=== PATIENT | female | born 2005 | race Caucasian/White ===

== ENCOUNTER 2024-06-02 15:29 | Inpatient (IN) ==
--- NOTE | 2024-06-02 16:14 | Emergency Department Note ---
Impression & Plan Pneumonia ED Provider Note NAME: KENNY JANE AGE: 18 SEX: F : 2005 ARRIVES VIA: Walk-In INFORMANT: Patient, ED PROVIDER(S): Sue Briceño MD CHIEF COMPLAINT: Pneumonia, hypokalemia HPI: This is a 18-year-old female presenting for low potassium and pneumonia. Patient was recently urgent care for 1+ week of cough, congestion. She notes that she was been sick for 3+ weeks. She was at urgent care last week for she is given steroids and antibiotics, amoxicillin. She is not feeling better and represented if she had another chest x-ray which revealed pneumonia. She is also found to hypokalemic and sent here. ROS: See above HPI for pertinent positives & negatives. A total of 10 systems reviewed and were otherwise negative. PAST MEDICAL HISTORY: See Below PAST SURGICAL HISTORY: See Below FAMILY HISTORY: See Below SOCIAL HISTORY: See Below HOME MEDICATIONS: See Below ALLERGIES: See Below VITALS: See Below PHYSICAL EXAMINATION: General: resting comfortably in no acute distress Head: Normocephalic and atraumatic Eyes: Normal inspection, extraocular muscles intact Ear, nose, throat: Normal external exam Neck: Normal range of motion Respiratory: lungs clear to auscultation bilaterally Cardiovascular: Regular rate/rhythm, no murmur GI: soft, nontender, no guarding or rebound Extremities: nontender, moves all extremities Neuro: The patient awake and alert, appropriately conversive, no focal deficits, symmetric faces Skin: Warm, dry, and intact MEDICAL DECISION MAKING: This is a 18-year-old female present for low potassium/pneumonia. Patient is hypotensive and febrile at triage. She is not tachycardic. Upon recheck of her blood pressure it is now 110/80s. She is not febrile currently at temperature of 98 degrees. -Will order fluids, antibiotics, blood cultures -Due to the national IV fluid shortage, we will use only 1 L as patient is 62 kg and not currently hypotensive -Patient is already failed outpatient therapy, was on amoxicillin for 1 week without improvement and actually worsening -Otherwise patient mention she had fainted earlier due to her POTS. -She is hypokalemic here, will require repletion will give oral potassium -Upper respiratory panel negative -Due to the pneumonia, outpatient failure, hypokalemia and fainting and will admit for pneumonia treatment Differential diagnosis: Pneumonia, respiratory infection ER treatment provided: See below Diagnostics interpreted by me: ECG: ECG independently interpreted by me with normal sinus rhythm, rate of 84, normal axis, normal IA, normal QRS, normal QTc, no ST segment elevations consistent with STEMI criteria Cardiac Monitoring: An order was placed for continuous cardiac monitoring. The monitor shows a rate of 78 with sinus rhythm. Laboratory studies: As stated above and show below. Imaging studies: See below. Past Med/Surg History Problem List (Updated 06/02/24 @ 22:06 by Sue Briceño MD) Pneumonia (Acute) Family history of factor V Leiden mutation Acute otitis media Hypokalemia Postural orthostatic tachycardia syndrome Hypotension Pneumonia Syncope Vasovagal episode Tonsillitis, chronic Medical History Postural orthostatic tachycardia syndrome History of COVID-19 Anxiety Surgical History S/P tonsillectomy and adenoidectomy Hx of wisdom tooth extraction Family History Father Unknown family medical history Mother Unknown family medical history Social History Smoking Status: Never smoker Second Hand Exposure: No; Do You Dip or Chew Tobacco: No; Hx Alcohol Use: No Hx Substance Use: No Preferred Language: Greek Communication Ability: Effective 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 Beliefs That Will Affect Care: None Current Living Situation: Other Current Living Situation Comment: Off-campus apartment @ [facility] Other Information That Helps Us Care for You: No Feels Safe at Home: Yes Safety Concerns: Feels Safe At This Time Assistive Devices: Glasses Allergies Allergies Allergy/AdvReac Type Severity Reaction Status Date / Time cefdinir Allergy Rash Verified 06/02/24 12:18 clindamycin Allergy Rash Verified 06/02/24 12:18 Home Meds Home Medications Medication Instructions Recorded Confirmed norethindrone 1 mg-ethinyl 1 tab PO HS 06/17/22 06/02/24 estradiol 20 mcg (21)-iron 75 mg (7) tablet (09/12 (28)) Saccharomyces boulardii [Probiotic 1 tab PO DAILY 09/10/23 06/02/24 (S.boularparkeri)] escitalopram oxalate 10 mg tablet 10 mg PO HS 09/10/23 06/02/24 fludrocortisone 0.1 mg tablet 0.1 mg PO HS 06/02/24 06/02/24 Previous Rx's Medication Instructions Recorded albuterol sulfate 90 mcg/actuation 2 puff inhalation .Q4-6H PRN 05/26/24 aerosol inhaler shortness of breath or wheezing #8.5 grams Results & Data (ED) Vital Signs Vital Signs - 24 hr 06/02/24 15:37 06/02/24 15:47 06/02/24 17:08 Temperature 38.2 C H Temperature Source Oral Pulse Rate 78 90 Pulse Rate [Apical] 97 H Respiratory Rate 18 27 H Respiratory Effort / Characteristics Non-Labored Respiratory Depth Normal Blood Pressure 86/56 L Blood Pressure [Right Arm] 123/77 Blood Pressure Mean 66 Blood Pressure Mean [Right Arm] 92 Pulse Oximetry 95 95 Oxygen Delivery Method Room Air Room Air Sepsis Recent Fever Within 48 Hours No Sepsis New/Unexplained Change in Mental Status N/A Sepsis Action Taken by Nursing Physician Notified 06/02/24 17:27 Temperature 37.1 C Temperature Source Oral Pulse Rate Pulse Rate [Apical] Respiratory Rate Respiratory Effort / Characteristics Respiratory Depth Blood Pressure Blood Pressure [Right Arm] Blood Pressure Mean Blood Pressure Mean [Right Arm] Pulse Oximetry Oxygen Delivery Method Sepsis Recent Fever Within 48 Hours Sepsis New/Unexplained Change in Mental Status Sepsis Action Taken by Nursing Laboratory Data 06/02/24 15:49 Lab Results 06/02/24 06/02/24 Range/Units 15:49 15:53 Sodium 137 (136-145) mmol/L Potassium 2.7 L (3.5-5.1) mmol/L Chloride 98 (98-107) mmol/L Carbon Dioxide 29 (21-32) mmol/L Anion Gap 10 (3-11) BUN 8 (6-23) mg/dl Creatinine 0.71 (0.6-1.2) mg/dl Est Cr Clr Drug Dosing Not Reportable eGFR 124.75 BUN/Creatinine Ratio 11.3 (10-20) Glucose 109 H (70-99(Fasting)) mg/dl Calcium 8.7 (8.6-10.3) mg/dl Magnesium 2.0 (1.7-2.4) mg/dl Total Bilirubin 0.6 (0.2-1.0) mg/dl Direct Bilirubin 0.1 (0-0.2) mg/dl AST 10 L (13-39) U/L ALT 11 (7-52) U/L Alkaline Phosphatase 55 (34-104) U/L Total Protein 7.1 (6.0-8.3) gm/dl Albumin 3.8 (3.4-5.0) gm/dl Globulin 3.3 (2.5-4.0) gm/dl Albumin/Globulin Ratio 1.2 (0.9-2) Lipase 32 (11-82) U/L HCG, Qual Negative (Negative) Adenovirus (PCR) Not Detected (NotDetected) B. pertussis DNA (PCR) Not Detected (NotDetected) B.parapertussis DNA PCR Not Detected (NotDetected) C. pneumoniae DNA (PCR) Not Detected (NotDetected) Coronavirus OC43 (PCR) Not Detected (NotDetected) Coronavirus HKU1 (PCR) Not Detected (NotDetected) Coronavirus 229E (PCR) Not Detected (NotDetected) SARS-CoV-2 (PCR) Not Detected (NotDetected) Coronavirus NL63 (PCR) Not Detected (NotDetected) Human Metapneumovir PCR Not Detected (NotDetected) Influenza Type A (PCR) Not Detected (NotDetected) Influenza Type B (PCR) Not Detected (NotDetected) M. pneumoniae (PCR) Not Detected (NotDetected) Parainfluenza 1 (PCR) Not Detected (NotDetected) Parainfluenza 2 (PCR) Not Detected (NotDetected) Parainfluenza 3 (PCR) Not Detected (NotDetected) Parainfluenza 4 (PCR) Not Detected (NotDetected) RSV (PCR) Not Detected (NotDetected) Entero/Rhino (PCR) Not Detected (NotDetected) Administered Medications Escitalopram Oxalate (Escitalopram Oxalate 10 Mg Tab) 10 mg PO HS ANITRA Stop: 07/02/24 21:30 Last Admin: 06/02/24 21:49 Dose: Not Given Documented By: ACH Fludrocortisone Acetate (Fludrocortisone Acetate 0.1 Mg Tab) 0.1 mg PO HS ANITRA Stop: 07/02/24 21:30 Last Admin: 06/02/24 21:50 Dose: Not Given Documented By: WILD Heparin Sodium (Porcine) (Heparin Sod 5,000 Unit/0.5 Ml Vial) 5,000 units SQ Q12 ANITRA Stop: 07/02/24 20:59 Last Admin: 06/02/24 21:01 Dose: 5,000 units Documented By: DL Discontinued Medications Ceftriaxone Sodium (Rocephin) 2,000 mg in 50 mls @ 100 mls/hr IV NOW STA Stop: 06/02/24 17:10 Last Infusion: 06/02/24 17:36 Dose: Infused Documented By: Admin: 06/02/24 17:11 Dose: 100 mls/hr Documented By: MMF Doxycycline Hyclate 100 mg/ (Dextrose) 100 mls @ 50 mls/hr IV NOW STA Stop: 06/02/24 18:40 Last Infusion: 06/02/24 20:23 Dose: Infused Documented By: Admin: 06/02/24 18:49 Dose: 50 mls/hr Documented By: BRIAN Ioversol (Optiray 320 125ml) 112 ml IV ONCE ONE Stop: 06/02/24 19:23 Last Admin: 06/02/24 19:22 Dose: 112 ml Documented By: CAROLINA Potassium Chloride (Potassium Chloride Crtab 20 Meq Tabcr) 40 meq PO NOW STA Stop: 06/02/24 16:36 Last Admin: 06/02/24 17:11 Dose: 40 meq Documented By: BRIAN Potassium Chloride (Potassium Chloride Crtab 20 Meq Tabcr) 40 meq PO NOW STA Stop: 06/02/24 18:31 Last Admin: 06/02/24 18:52 Dose: 40 meq Documented By: MMF Imaging Data Radiologist's Impression: Chest CTA 06/02/24 18:29 Exam(s): CTA CHEST IV Amt: 112 ml optiray 320 EXAM: CT Angiography Chest With Intravenous Contrast CLINICAL HISTORY: Reason for exam: PE. TECHNIQUE: Axial computed tomographic angiography images of the chest with intravenous contrast. CTDI is 22 mGy and DLP is 320.24 mGy-cm. Automated exposure control was utilized for the study. A dose lowering technique was utilized adhering to the principles of ALARA. MIP reconstructed images were created and reviewed. COMPARISON: No relevant prior studies available. FINDINGS: Pulmonary arteries: Unremarkable. No evidence of pulmonary embolism. Aorta: No acute findings. No aortic aneurysm or dissection. Lungs: Patchy and extensive consolidative opacities throughout the right lower lobe consistent with pneumonia. Left lung appears clear. Pleural space: Trace bilateral pleural effusions. No pneumothorax. Heart: Unremarkable. No cardiomegaly. No significant pericardial effusion. Bones/joints: No acute fracture. No dislocation. Soft tissues: Unremarkable. Lymph nodes: Unremarkable. No enlarged lymph nodes. IMPRESSION: 1. No evidence of pulmonary embolism. 2. Patchy and extensive consolidative opacities throughout the right lower lobe consistent with pneumonia. Electronically signed by: Alexandr Gann M.D. 06/02/24 20:04 PM Discharge Plan Visit Data Chief Complaint: Abnormal Labs/Diagnostic Testing Stated Complaint: ABN LABS ED Provider: Sue Briceño Discharge Problem: Pneumonia Patient Disposition: Admitted As Inpatient Discharge Instructions Interventions: ED Discharge Assessment Last Done: 06/02/24 21:11
[2024-06-02 16:37] LABS: Albumin Level 3.8 gm/dl (3.4-5.0); Anion Gap 10 (3-11); Bilirubin Direct 0.1 mg/dl (0-0.2); Bilirubin,Total 0.6 mg/dl (0.2-1.0); Calcium 8.7 mg/dl (8.6-10.3); Carbon Dioxide 29 mmol/L (21-32); Chloride 98 mmol/L (98-107); Potassium 2.7 mmol/L (3.5-5.1); Sodium 137 mmol/L (136-145)
[2024-06-02 16:43] LABS: Alanine Aminotransferase 11 U/L (7-52); Albumin Globulin Ratio 1.2 (0.9-2); Alkaline Phosphatase 55 U/L (34-104); Aspartate Aminotransferase 10 U/L (13-39); BUN Creatinine Ratio 11.3 (10-20); Blood Urea Nitrogen 8 mg/dl (6-23); Globulin 3.3 gm/dl (2.5-4.0); Glucose 109 mg/dl (70-99(Fasting)); Lipase 32 U/L (11-82); Total Protein 7.1 gm/dl (6.0-8.3)
[2024-06-02 16:59] LABS: Adenovirus PCR Not Detected (NotDetected); Bordetella parapertussis PCR Not Detected (NotDetected); Bordetella pertussis PCR Not Detected (NotDetected); Chlamydia pneumoniae PCR Not Detected (NotDetected); Coronavirus 229E PCR Not Detected (NotDetected); Coronavirus CoV-2 (COVID19)PCR Not Detected (NotDetected); Coronavirus HKU1 PCR Not Detected (NotDetected); Coronavirus NL63 PCR Not Detected (NotDetected); Coronavirus OC43PCR Not Detected (NotDetected); Human Metapneumovirus PCR Not Detected (NotDetected); Influenza A PCR Not Detected (NotDetected); Influenza B PCR Not Detected (NotDetected); Mycoplasma pneumoniae PCR Not Detected (NotDetected); Parainfluenza Virus 1 PCR Not Detected (NotDetected); Parainfluenza Virus 2 PCR Not Detected (NotDetected); Parainfluenza Virus 3 PCR Not Detected (NotDetected); Parainfluenza Virus 4 PCR Not Detected (NotDetected); Respiratory Syncytial VirusPCR Not Detected (NotDetected); Rhinovirus/Enterovirus PCR Not Detected (NotDetected)
[2024-06-02] MEDS: cefTRIAXone SODIUM 2,000 MG/50 ML BAG IV STA (17:11)
[2024-06-02] MEDS: POTASSIUM CHLORIDE CRTAB 20 MEQ TABCR PO STA ×2 (17:11→18:52)
--- NOTE | 2024-06-02 17:45 | History & Physical Report ---
Date of Service June 02, 2024 Assessment & Plan (1) Pneumonia: Plan: Worsening pneumonia x 3 week despite recent course of amoxicillin + prednisone Failure of outpatient antibiotics Non-hypoxic on arrival; however patient is tachycardic, febrile, and hypotensive in the ED CXR revealed moderate RLL airspace opacity with consolidation consistent with pneumonia Blood cultures drawn x 2 Rocephin 2000 mg IV q24h Doxycycline 100 mg IV q12h Guaifenesin 600 mg p.o. q12h DuoNeb 3 mL 6QR as needed for wheezing Continuous pulse oximetry Supplemental oxygen as needed to maintain SpO2 >94% A.m. CBC, BMP, mag (2) Family history of factor V Leiden mutation: Plan: Patient also endorses pleuritic CP and hemoptysis x 3 days No personal history of DVT/PE, but Family hx of DVT/PE/Factor V Leiden Patient is currently on control She reports S sent her in today to double check for PE D-dimer elevated at 550 Chest CTA ordered, pending (3) Hypotension: Plan: Patient's blood pressure fell to 86/56 in the ED Patient attributes this to POTS, and she rebounded quickly without IV fluid resuscitation In the setting of national IVF shortage, will defer overnight IVF maintenance at this time IVF bolus as needed for recurrence of hypotension Encourage PO fluid intake (4) Syncope: Plan: Patient reports that she passed out on 06/02 while having her blood work drawn History of vasovagal syncope, which she attributes to POTS Close blood pressure monitoring Continuous telemetry monitoring (5) Hypokalemia: Plan: K 2.7 on arrival Potassium chloride 80mEq ordered Mag ordered, pending Recheck AM BMP (6) Postural orthostatic tachycardia syndrome: Plan: Continue fludrocortisone (7) Acute otitis media: Plan: Bulging left tympanic membrane on clinical exam Rocephin (as above) Plan Disposition: Admit to [facility] telemetry pending CTA results Full code Regular diet VTE PPx: Chest CTA ordered, pending Will defer to Dr. Key's overnight (Heparin IV w/ bolus if positive for PE; due to risk factors, would also recommend Lovenox 40mg SQ q24h if negative for PE) History of Present Illness Chief Complaint: RLL pneumonia Primary Care Provider: [facility] Donis is a pleasant 18-year-old female with PMH of tonsillitis and vasovagal syncope. She presented on 06/02 for worsening pneumonia despite outpatient treatment. Patient symptoms began 3 weeks ago. Week 1: Initially she had a cold with body-aches and productive cough. This worsened and she eventually developed SOB and had concerns for mucous plugging in the lungs. She also had an episode of vomiting, but is unsure if it was secondary to taking acetaminophen on an empty stomach. She went to urgent care on Sunday 05/27 and was prescribed amoxicillin x 10 days and steroids. Despite this, her symptoms have worsened. She went to [facility] today and was told that she has an ear infection, and she should be sent over for imaging to chest for a potential blood clot. Patient reports that she does have a family history of blood clots, and that she needs to be tested for factor V Leiden. Both grandparents on both sides of had blood clots in the past. She has no personal history of DVT or PE. Patient reports that she passed out today when she was having blood work drawn. For her symptoms at home, she has been taking extra strength Tylenol and DayQuil as needed. She has been having low-grade fevers at home around 100 F intermittently. Patient takes all of her medications at night, and reports that she has been taking them regularly. She is currently on day 7 of a 10-day course of amoxicillin. Around 3 days ago, she began developing hemoptysis (streaks of blood in her cough). She also reports pleuritic chest pain when having these coughing fits. She denies chance of and reports her last menstrual period was 2 weeks ago. She denies any recent rashes or tick bites to her knowledge. She was given an inhaler for bronchitis this past week, but does not have a history of asthma to her knowledge. She denies smoking, chewing toba account manager b2b, vaping, alcohol use, or recreational drug use. She denies past medical history of pulmonary issues. 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 She reports that she only has a mild allergy to cefdinir (developed a rash on her forehead); no history of anaphylaxis, hives, or throat closure. She denies penicillin allergy. She does have a history of ear infections. Patient was hypotensive at 85/56 in the ED, but rebounded quickly with IV fluids. Patient is tachypneic at 27 rpm and mildly tachycardic around 100 bpm at time of admission; vitals otherwise stable. ED course: Doxycycline 100 mg IV Rocephin 2000 mg IV Potassium chloride 40mEq p.o. ROS: Patient endorses low-grade fever, chills, night-sweats, rib pain (from coughing), productive cough (white/green), coughing fits, hemoptysis (streaks of blood in cough), pleuritic CP, green bile vomiting x 1 episode (attributes to not eating much and taking Tylenol on an empty stomach), Patient denies dizziness/lightheadedness, MAX, chest pain, SOB at rest and with exertion, nausea, diarrhea, changes in urinary/bowel habits, burning with urination, blood in the urine/stool, melena, or numbness/tingling in the arms or legs. Please see Dr. Yarbrough' attestation for any changes to treatment plan overnight. Allergies Allergy/AdvReac Type Severity Reaction Status Date / Time cefdinir Allergy Rash Verified 06/02/24 12:18 clindamycin Allergy Rash Verified 06/02/24 12:18 Home Medications Medication Instructions Recorded Confirmed Type norethindrone 1 mg-ethinyl 1 tab PO HS 06/17/22 06/02/24 History estradiol 20 mcg (21)-iron 75 mg (7) tablet (09/12 (28)) Saccharomyces boulardii [Probiotic 1 tab PO DAILY 09/10/23 06/02/24 History (S.boulardii)] escitalopram oxalate 10 mg tablet 10 mg PO HS 09/10/23 06/02/24 History albuterol sulfate 90 mcg/actuation 2 puff inhalation .Q4-6H PRN 05/26/24 06/02/24 Rx aerosol inhaler shortness of breath or wheezing #8.5 grams fludrocortisone 0.1 mg tablet 0.1 mg PO HS 06/02/24 06/02/24 History Past Med/Surg History Problem List (Updated 06/02/24 @ 19:03 by Bertram Veliz PA-C) Family history of factor V Leiden mutation Acute otitis media Hypokalemia Postural orthostatic tachycardia syndrome Hypotension Pneumonia Syncope Vasovagal episode Tonsillitis, chronic Medical History Postural orthostatic tachycardia syndrome History of COVID-19 Anxiety Surgical History S/P tonsillectomy and adenoidectomy Hx of wisdom tooth extraction Family History Father Unknown family medical history Mother Unknown family medical history Social History Smoking Status: Never smoker Second Hand Exposure: No; Do You Dip or Chew Tobacco: No; Hx Alcohol Use: No Hx Substance Use: No Preferred Language: Armenian Communication Ability: Effective 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 Beliefs That Will Affect Care: None Current Living Situation: Parent Feels Safe at Home: Yes Assistive Devices: Glasses Review of Systems Review of Systems: See HPI above Physical Exam Physical Exam: General: no acute distress; pleasant affect; non-toxic appearing; well- nourished; cooperative; SpO2 95% on RA HEENT: normocephalic, atraumatic; no scleral icterus; PERRLA; vision and hearing intact; left tympanic membrane is erythematous and bulging; right tympanic membrane is pearly pollock without signs of infection; posterior pharynx is raw, erythematous without exudates Neck: supple; trachea midline Skin: warm, dry without signs of tenting; no cyanosis; no rashes, bruising, lesions, or erythema noted CV: chest wall NTP; RRR; S1/S2 normal; no murmurs/rubs/gallops; pulses intact and symmetric at radial, DP, and PT Lungs: No acute respiratory distress; intermittent hacking/coughing fits; symmetrical chest wall expansion; bibasilar crackles auscultated in the lower lung melvin bilaterally; mild wheezing ABD: Soft, NTP; BS present; no rebound/guarding; no distention MSK: no tics or fasciculations; no edema noted in the LEs b/l, nonerythematous Neuro: A&Ox3; normal mood and affect; fluent speech; no focal deficits; sensation grossly intact in the LEs b/l Results & Data Results & Data Vital Signs (Past 12 Hours) Vital Signs Temp Pulse Pulse Resp BP BP Pulse Ox 06/02/24 17:27 37.1 C 06/02/24 17:08 97 H 27 H 123/77 95 06/02/24 15:37 38.2 C H 78 18 86/56 L 95 O2 Del Method 06/02/24 17:27 06/02/24 17:08 Room Air 06/02/24 15:37 Room Air Laboratory Results Abnormal lab results 06/02/24 Range/Units 15:49 Potassium 2.7 L (3.5-5.1) mmol/L Glucose 109 H (70-99(Fasting)) mg/dl AST 10 L (13-39) U/L Diagnostic Findings XR chest 2V PA/lateral CLINICAL HISTORY: J22 - Unspecified acute lower respiratory infection COMPARISON STUDY: Chest radiograph July 03, 2022. FINDINGS: Lung volumes are normal. There is moderate right lower lobe airspace opacity with consolidation. There is no pneumothorax or pleural effusion. Cardiac size is normal. Mediastinal contours are normal. There is no evidence for pulmonary edema. IMPRESSION: Moderate right lower lobe airspace opacity with consolidation consistent with pneumonia. Post treatment radiographs to ensure resolution are recommended. ACT 112: Negative or not required by law. Electronically signed by: Charbel Foote M.D. 06/02/2024 3:08 PM ECG Additional Comments: ECG revealed normal sinus rhythm at 84 bpm; QTc 439 Code Status & VTE Plan Code Status Full code VTE Prophylaxis Plan VTE Prophylaxis will be ordered: Yes Supervising Physician Co-Signing Physician Notes I have personally seen, evaluated and examined the patient. I have also personally discussed the management of the patient with the resident physician/KVNG and I agree with the exam findings documented in the history and physical examination and the documented assessment and plan unless otherwise stated below. Brief Exam: General 18-year-old female is alert and oriented x 3 at the time my exam. She interacts appropriately. She is accompanied by her boyfriend whom she grants permission to be in the room during my interview and examination. 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 HEENT: Normocephalic atraumatic. Heart: Regular rate and rhythm. Lungs: Coarse Bilaterally with rhonchi. Abdomen: Soft and nontender. Extremities: Intact with no edema. Neurologically: Alert and oriented x 3. Assessment/plan: As discussed above. CTA has now been resulted and is negative for pulmonary embolism but does have bilateral patchy pulmonary infiltrates. Continue antibiotic therapy. Sputum cultures. Chemical DVT prophylaxis with Lovenox. Please refer to orders for further planning. PG Care Time/CCT Total # of Minutes Spent Total Time Spent with Patient: Total time spent is greater than 50% in coordination of care (as documented) at patient's floor/unit and/or counseling patient: [place] [address] INT INP/OBS CARE 3/75MIN Patient Type Established Medical Decision Making High Complexity Diagnoses Pneumonia J18.9 Family history of factor V Leiden mutation Z83.2 Hypotension I95.9 Syncope, unspecified syncope type R55 Syncope type: unspecified Hypokalemia E87.6 Postural orthostatic tachycardia syndrome G90.A Acute otitis media H66.90 (4) Syncope Syncope type: unspecified Qualified Code(s): R55 - Syncope and collapse
[2024-06-02 18:21] LABS: Pregnancy Test, Serum Negative (Negative)
[2024-06-02] MEDS: DOXYCYCLINE HYCLATE 100 MG in DEXTROSE 5% MINI-B 100 ML IV STA (18:49)
[2024-06-02] MEDS: OPTIRAY 320 125ml IV ONE (19:22)
--- NOTE | 2024-06-02 20:05 | CT Scan Report ---
Exam(s): CTA CHEST IV Amt: 112 ml optiray 320 EXAM: CT Angiography Chest With Intravenous Contrast CLINICAL HISTORY: Reason for exam: PE. TECHNIQUE: Axial computed tomographic angiography images of the chest with intravenous contrast. CTDI is 22 mGy and DLP is 320.24 mGy-cm. Automated exposure control was utilized for the study. A dose lowering technique was utilized adhering to the principles of ALARA. MIP reconstructed images were created and reviewed. COMPARISON: No relevant prior studies available. FINDINGS: Pulmonary arteries: Unremarkable. No evidence of pulmonary embolism. Aorta: No acute findings. No aortic aneurysm or dissection. Lungs: Patchy and extensive consolidative opacities throughout the right lower lobe consistent with pneumonia. Left lung appears clear. Pleural space: Trace bilateral pleural effusions. No pneumothorax. Heart: Unremarkable. No cardiomegaly. No significant pericardial effusion. Bones/joints: No acute fracture. No dislocation. Soft tissues: Unremarkable. Lymph nodes: Unremarkable. No enlarged lymph nodes. IMPRESSION: 1. No evidence of pulmonary embolism. 2. Patchy and extensive consolidative opacities throughout the right lower lobe consistent with pneumonia. Electronically signed by: Alexandr Gann M.D. 06/02/24 20:04 PM
[2024-06-02] MEDS: HEPARIN SOD 5,000 UNIT/0.5 ML VIAL SQ SCH (21:01)
[2024-06-02] MEDS ORDERED: ACETAMINOPHEN 325 MG TAB PO PRN (21:31)
[2024-06-02] MEDS ORDERED: ALBUT/IPRATROP 3MG/0.5MG NEB 3 ML VIAL NEB PRN (21:31)
[2024-06-02] MEDS: ESCITALOPRAM OXALATE 10 MG TAB PO SCH (21:49)
[2024-06-02] MEDS: FLUDROCORTISONE ACETATE 0.1 MG TAB PO SCH (21:50)
[2024-06-02] MEDS: guaiFENesin 600 MG TABCR PO SCH (22:38)
[2024-06-02 23:05] LABS: Appearance Urine Clear (Clear); Bacteria Urine Automated None Seen (None Seen); Bilirubin Urine Negative (Negative); Blood Urine Negative (Negative); Cast Urine Automated 0-2 /lpf (0-2); Color Urine Yellow; Glucose Urine UA Negative (Negative); Ketones Urine Negative (Negative); Leukocyte Esterase Urine 1+ (Negative); Nitrite Urine Negative (Negative); Protein Urine Negative (Negative); Specific Gravity Urine 1.042 (1.000-1.030); Urobilinogen Urine Negative (Negative); WBC Urine Automated 0-5 /hpf (0-5); pH Urine 8.5 (4.5-7.5)
[2024-06-03 07:25] LABS: Basophils # (auto) 0.03 K/uL (0.00-0.20); Basophils % (auto) 0.4 %; Eosinophils # (auto) 0.27 K/uL (0.00-0.50); Hemoglobin 12.3 g/dl (12.0-16.0); Immature Granulocytes # (auto) 0.03 K/uL (0.01-0.20); Immature Granulocytes % (auto) 0.4 %; Lymphocytes # (auto) 1.96 K/uL (1.20-3.40); Lymphocytes % (auto) 29.3 %; Mean Corpuscular Hemoglobin 29.7 pg (25.0-34.0); Mean Corpuscular Hgb Conc 34.2 g/dL (32.0-36.0); Mean Platelet Volume 9.6 fL (9.4-12.4); Monocytes # (auto) 0.48 K/uL (0.11-0.59); Monocytes % (auto) 7.2 %; Neutrophils # (auto) 3.91 K/uL (1.40-6.50); Neutrophils % (auto) 58.7 %; Platelet Count 261 K/uL (130-400); RDW Standard Deviation 38.6 fL (36.4-46.3); Red Blood Count 4.14 M/uL (4.20-5.40); White Blood Count 6.68 K/ul (4.8-10.8)
[2024-06-03 07:29] LABS: BUN Creatinine Ratio 14.8 (10-20); Calcium 8.4 mg/dl (8.6-10.3); Creatinine Clr Calc Pharmacy 132.4 ml/min; Magnesium 2.1 mg/dl (1.7-2.4); Potassium 3.7 mmol/L (3.5-5.1)
[2024-06-03] MEDS: DOXYCYCLINE HYCLATE 100 MG in DEXTROSE 5% MINI-B 100 ML IV SCH (08:02)
--- NOTE | 2024-06-03 08:04 | Medical Student Progress Note ---
Date of Service June 03, 2024 Assessment & Plan (1) Pneumonia: Plan: -Resolving, but still some concern -Dyspnea improving, sputum clearing up -Amoxicillin course not complete -Fevers/chills persisting, warm and sweaty on exam -Continue amoxicillin PO -Discontinue doxycycline -Continue Rocephin Worsening pneumonia x 3 week despite recent course of amoxicillin + prednisone Failure of outpatient antibiotics Non-hypoxic on arrival; however patient is tachycardic, febrile, and hypotensive in the ED CXR revealed moderate RLL airspace opacity with consolidation consistent with pneumonia Blood cultures drawn x 2 Rocephin 2000 mg IV q24h Doxycycline 100 mg IV q12h Guaifenesin 600 mg p.o. q12h DuoNeb 3 mL 6QR as needed for wheezing Continuous pulse oximetry Supplemental oxygen as needed to maintain SpO2 >94% A.m. CBC, BMP, mag (2) Family history of factor V Leiden mutation: Plan: -Current chest pain associated w/rib soreness from coughing -Hemoptysis = blood streaks, resolved 3 days ago. Likely due to irritation from coughing -Chest CT negative for PE -Monitor for change in chest pain Patient also endorses pleuritic CP and hemoptysis x 3 days No personal history of DVT/PE, but Family hx of DVT/PE/Factor V Leiden Patient is currently on control She reports [facility] sent her in today to double check for PE D-dimer elevated at 550 Chest CTA ordered, pending (3) Hypotension: Plan: Patient's blood pressure fell to 86/56 in the ED Patient attributes this to POTS, and she rebounded quickly without IV fluid resuscitation In the setting of national IVF shortage, will defer overnight IVF maintenance at this time IVF bolus as needed for recurrence of hypotension Encourage PO fluid intake (4) Syncope: Plan: Patient reports that she passed out on 06/02 while having her blood work drawn History of vasovagal syncope, which she attributes to POTS Close blood pressure monitoring Continuous telemetry monitoring Syncope type: unspecified Qualified Code(s): R55 - Syncope and collapse (5) Hypokalemia: Plan: K 2.7 on arrival Potassium chloride 80mEq ordered Mag ordered, pending Recheck AM BMP (6) Postural orthostatic tachycardia syndrome: Plan: Continue fludrocortisone (7) Acute otitis media: Plan: Bulging left tympanic membrane on clinical exam Rocephin (as above) Plan Disposition: Admit to [facility] telemetry pending CTA results Full code Regular diet VTE PPx: Chest CTA ordered, pending Will defer to Dr. Key's overnight (Heparin IV w/ bolus if positive for PE; due to risk factors, would also recommend Lovenox 40mg SQ q24h if negative for PE) Admission and Anticipated Discharge Date Admission Date: June 02, 2024 Subjective No acute events overnight. Donis is feeling better. Shortness of breath is improving, only noted soreness in ribs from coughing. Mucus from cough is now clear, and bloody streaks resolved 3 days ago. She experienced fevers/chills on and off yesterday but has not felt any this morning. She also denies ear pain or discharge, chest pain, or abdominal pain. Review of Systems Review of Systems: Per HPI Physical Exam Physical Exam: General: Well-appearing, well-nourished female, in no acute distress. Vitals unremarkable HEENT: Normocephalic, atraumatic. Conjunctivae clear, sclera nonicteric, pupils equally round and reactive to light, extraocular movements intact. Neck supple, no lymphadenopathy, no thyromegaly. Respiratory: Productive-sounding coughs. Symmetric chest wall expansion, nonlabored breathing, no accessory muscle use. Crackles and wheezing on expiration throughout R lung, pronounced in RLL. Cardiovascular: Regular rate and rhythm, no murmurs rubs or gallops. No leg edema GI: Normoactive bowel sounds. Abdomen nondistended, nontender. No hepatosplenomegaly. Skin: Warm and moist Results & Data Vital Signs (Past 12 Hours) Vital Signs Temp Pulse Pulse Pulse Resp BP Pulse Ox 06/03/24 07:32 06/03/24 00:34 95 06/02/24 21:43 105 H 06/02/24 21:34 87 06/02/24 21:27 06/02/24 21:27 37 C 89 18 122/82 96 06/02/24 21:00 88 17 114/75 98 O2 Del Method 06/03/24 07:32 Room Air 06/03/24 00:34 Room Air 06/02/24 21:43 06/02/24 21:34 06/02/24 21:27 Room Air 06/02/24 21:27 Room Air 06/02/24 21:00 Room Air Resident Supervision Co-Signing Physician Notes Resident Attestation I was personally present during medical student and patient encounter and independently interviewed and examined the patient and verified the reed history and physical, reviewed labs and image studies, discussed the case with Hector LUCERO), and agree with the above mentioned findings and care plan. Resident Activity Tracking Resident Involvement: Resident Care Provided Care Provided: Adult Hospital Medicine
[2024-06-03 11:41] VITALS: BP 116/76; RESP 18; TEMP 97.9; O2SAT 93
--- NOTE | 2024-06-03 14:18 | Electrocardiogram Report ---
Test Reason : Blood Pressure : */* mmHG Vent. Rate : 84 BPM Atrial Rate : 84 BPM P-R Int : 138 ms QRS Dur : 88 ms QT Int : 372 ms P-R-T Axes : 48 83 22 degrees QTcB Int : 439 ms Normal sinus rhythm Normal ECG When compared with ECG of 10-Sep-2023 14:27, (unconfirmed) Nonspecific T wave abnormality now evident in Anterior leads Confirmed by Uriah Ochoa ([id number]) on 06/03/2024 2:18:05 PM Referred By: REFERRED SELF Confirmed By: Uriah Ochoa
--- NOTE | 2024-06-03 15:02 | Electrocardiogram Report ---
Test Reason : Blood Pressure : */* mmHG Vent. Rate : 80 BPM Atrial Rate : 80 BPM P-R Int : 136 ms QRS Dur : 90 ms QT Int : 386 ms P-R-T Axes : 62 78 30 degrees QTcB Int : 445 ms Normal sinus rhythm Normal ECG When compared with ECG of 02-Jun-2024 15:49, (unconfirmed) No significant change was found Confirmed by Uriah Ochoa ([id number]) on 06/03/2024 3:02:24 PM Referred By: REFERRED SELF Confirmed By: Uriah Ochoa
[2024-06-03] MEDS: cefTRIAXone SODIUM 2,000 MG/50 ML BAG IV SCH (16:04)
[2024-06-03 16:09] VITALS: PULSE 88
--- NOTE | 2024-06-03 16:09 | Med Student Discharge Summary ---
Date of Service June 03, 2024 Admission HPI Per Admitting Provider Donis is a pleasant 18-year-old female with PMH of tonsillitis and vasovagal syncope. She presented on 06/02 for worsening pneumonia despite outpatient treatment. Patient symptoms began 3 weeks ago. Week 1: Initially she had a cold with body-aches and productive cough. This worsened and she eventually developed SOB and had concerns for mucous plugging in the lungs. She also had an episode of vomiting, but is unsure if it was secondary to taking acetaminophen on an empty stomach. She went to urgent care on Sunday 05/27 and was prescribed amoxicillin x 10 days and steroids. Despite this, her symptoms have worsened. She went to [facility] today and was told that she has an ear infection, and she should be sent over for imaging to chest for a potential blood clot. Patient reports that she does have a family history of blood clots, and that she needs to be tested for factor V Leiden. Both grandparents on both sides of had blood clots in the past. She has no personal history of DVT or PE. Patient reports that she passed out today when she was having blood work drawn. For her symptoms at home, she has been taking extra strength Tylenol and DayQuil as needed. She has been having low-grade fevers at home around 100 F intermittently. Patient takes all of her medications at night, and reports that she has been taking them regularly. She is currently on day 7 of a 10-day course of amoxicillin. Around 3 days ago, she began developing hemoptysis (streaks of blood in her cough). She also reports pleuritic chest pain when having these coughing fits. She denies chance of and reports her last menstrual period was 2 weeks ago. She denies any recent rashes or tick bites to her knowledge. She was given an inhaler for bronchitis this past week, but does not have a history of asthma to her knowledge. She denies smoking, chewing tobacco, vaping, alcohol use, or recreational drug use. She denies past medical history of pulmonary issues. 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 She reports that she only has a mild allergy to cefdinir (developed a rash on her forehead); no history of anaphylaxis, hives, or throat closure. She denies penicillin allergy. She does have a history of ear infections. Patient was hypotensive at 85/56 in the ED, but rebounded quickly with IV fluids. Patient is tachypneic at 27 rpm and mildly tachycardic around 100 bpm at time of admission; vitals otherwise stable. ED course: Doxycycline 100 mg IV Rocephin 2000 mg IV Potassium chloride 40mEq p.o. ROS: Patient endorses low-grade fever, chills, night-sweats, rib pain (from coughing), productive cough (white/green), coughing fits, hemoptysis (streaks of blood in cough), pleuritic CP, green bile vomiting x 1 episode (attributes to not eating much and taking Tylenol on an empty stomach), Patient denies dizziness/lightheadedness, MAX, chest pain, SOB at rest and with exertion, nausea, diarrhea, changes in urinary/bowel habits, burning with urination, blood in the urine/stool, melena, or numbness/tingling in the arms or legs. Please see Dr. Yarbrough' attestation for any changes to treatment plan overnight. Admission Exam (Per Admitting) Constitutional General: no acute distress; pleasant affect; non-toxic appearing; well- nourished; cooperative; SpO2 95% on RA HEENT: normocephalic, atraumatic; no scleral icterus; PERRLA; vision and hearing intact; left tympanic membrane is erythematous and bulging; right tympanic membrane is pearly pollock without signs of infection; posterior pharynx is raw, erythematous without exudates Neck: supple; trachea midline Skin: warm, dry without signs of tenting; no cyanosis; no rashes, bruising, lesions, or erythema noted CV: chest wall NTP; RRR; S1/S2 normal; no murmurs/rubs/gallops; pulses intact and symmetric at radial, DP, and PT Lungs: No acute respiratory distress; intermittent hacking/coughing fits; symmetrical chest wall expansion; bibasilar crackles auscultated in the lower lung melvin bilaterally; mild wheezing ABD: Soft, NTP; BS present; no rebound/guarding; no distention MSK: no tics or fasciculations; no edema noted in the LEs b/l, nonerythematous Neuro: A&Ox3; normal mood and affect; fluent speech; no focal deficits; sensation grossly intact in the LEs b/l Discharge Exam General: Well-appearing, well-nourished female, in no acute distress. Vitals unremarkable HEENT: Normocephalic, atraumatic. Conjunctivae clear, sclera nonicteric, PERRL, EOMI. Neck supple, no lymphadenopathy, no thyromegaly. Respiratory: Productive-sounding coughs. Symmetric chest wall expansion, nonlabored breathing, no accessory muscle use. Crackles and wheezing on expiration throughout R lung, pronounced in RLL. Cardiovascular: RRR, no murmurs rubs or gallops. No leg edema GI: Normoactive bowel sounds. Abdomen nondistended, nontender. No hepatosplenomegaly. Skin: Warm to touch and moist Discharge Data Consultations 06/02/24 18:04 ED Decision to Admit Stat Hospital Course (1) Pneumonia: -Improving, but not resolved -Dyspnea improving, sputum clearing up -Amoxicillin course not complete -Fevers/chills persisting, warm and sweaty on exam -Chest CT: Patchy and extensive consolidative opacities throughout the right lower lobe consistent with pneumonia -Continue amoxicillin PO -Discontinue doxycycline -Received 2 days IV Rocephin -Cefpodoxime 200 mg PO BID 8 days to complete 10 days of therapy (2) Family history of factor V Leiden mutation: -Current PE ruled out -Current chest pain associated w/rib soreness from coughing -Hemoptysis = blood streaks, resolved 3 days ago. Likely due to irritation from coughing -Chest CT negative for PE -F/u outpatient management w/Dr. Roque (3) Hypotension: -Hx of POTS -F/u outpatient management w/Dr. Roque (4) Syncope: -Hx of POTS -F/u for outpatient management w/Dr. Roque (5) Hypokalemia: -Resolved -K 3.7 today -Depletion likely in setting of infection -Encouraged proper diet for continued repletion (6) Postural orthostatic tachycardia syndrome: Continue fludrocortisone (7) Acute otitis media: -Received 2 days IV Rocephin -Cefpodoxime 200 mg PO BID 8 days to complete 10 days of therapy -F/u for outpatient management w/Dr. Roque Discharge Plan Discharge Items Patient Disposition: Home - Self-Care Reason For Visit: PNUEMONIA Discharge Diagnosis: Pneumonia Activity: Per Instructions section Non-emergency contact: Primary Care Provider Call non-emergency contact if: you have any medication questions, your symptoms worsen and your temperature is above 101 Follow-up/Referrals: [facility] [Primary Care Provider] - Sia Roque MD [Resident] - Diet: Regular Addtl Attending Provider Instructions: You were admitted to the hospital due to pneumonia that was not well controlled with Amoxicillin as an outpatient. Due to this, we began treatment with a stronger antibiotic called Ceftriaxone which is given intravenously. After starting this treatment or due to time with continued antibiotic therapy, your symptoms began to improve. For this reason, we will be discharging you with a similar antibiotic but in a form that can be taken orally. This antibiotic is called Cefpodoxime 200 mg, which you should take by mouth two times a day for 8 more days to complete 10 days of therapy. We advise you take this weekend to rest while your symptoms are still improving.You may feel fatigue and have a persistent cough for a few weeks, but these should also continue to get better with time. If you notice a fever above 101 F or notice worsening symptoms such as shortness of breath, please return to the emergency department for evaluation. We advise you follow up with a primary care physician within 1-2 weeks for your post-discharge evaluation. A discharge summary will be sent to your primary care physician to ensure continuity of care. Please bring this discharge summary with you to your next office appointment so that your provider can review it at that time. CONTACT YOUR PRIMARY CARE PROVIDER if you experience any of the following: Worsening of symptoms Fever, chills, or fatigue Difficulty following your treatment plan, or difficulty taking medications CALL 911 OR GO TO THE EMERGENCY DEPARTMENT if you experience any of the following: Sudden, severe abdominal pain or nausea/vomiting Severe chest pain, or chest pain that radiates (moves) to your jaw or arm Sudden, severe shortness of breath or difficulty breathing Thank you for allowing us to participate in your care. Pending Studies at Discharge: No Stand-Alone Forms: My [employer], Smoking Cessation Medications and DC Order Prescriptions: New cefpodoxime 200 mg tablet 200 mg PO BID 8 Days Qty: 16 0RF Rx Instructions: must administer with a meal/food Continued escitalopram oxalate 10 mg tablet 10 mg PO HS Saccharomyces boulardii [Probiotic (S.boulardii)] 1 tab PO DAILY albuterol sulfate 90 mcg/actuation HFA aerosol inhaler 2 puff inhalation .Q4-6H PRN (Reason: shortness of breath or wheezing) Qty: 8.5 0RF norethindrone-e.estradiol-iron [09/12 (28)] 1 mg-20 mcg (21)/75 mg (7) tablet 1 tab PO HS fludrocortisone 0.1 mg tablet 0.1 mg PO HS Discharge Orders: Discharge Order (Routine); Ordered 06/03/24 Ordered By: Sia Roque Admission Data Admit Date/Time: 06/02/24 19:13 Attending Provider: Scott Modi Admit Provider: Tmoas Yarbrough Primary Care Provider: [facility] Other Providers: Tomas Yarbrough Other Interventions: Discharge Summary Assessment (RN) Last Done: 06/03/24 16:09 Resident Activity Tracking Resident Involvement: Resident Care Provided Care Provided: Adult [facility] Medicine Resident Supervision Co-Signing Physician Notes Resident Attestation I was personally present during medical student and patient encounter and independently interviewed and examined the patient and verified the reed history and physical, reviewed labs and image studies, discussed the case with Hector Juan (), and agree with the above mentioned findings and care plan. I personally examined the patient and verified all reed points of history and exam, discussed case, and agree with decision making with Dr Roque and Garth Juan MS2 feeling better. Would very much like to go home. Discussed treatment and follow-up. Patient expressed good understanding. Vitals noted, ending treatment she is awake alert pleasant no distress. HEENT normocephalic atraumatic mucous membranes moist. Breathing unlabored no accessory muscle use good effort. Skin without rashes pallor or icterus. Neuro without focal deficits. Pneumonia with possible sepsis present on admissionsepsis improved, hard to tell if she was truly septic or if the physiology was related to her POTSbut either way certainly warranted treatmentnow doing better. Was on amoxicillin, questionably failed backwill broaden coverage with a third-generation cephalosporin. Safe/stable for home. Close outpatient follow-up. extensive discussion on normal recovery time with pneumonia
--- NOTE | 2024-06-03 18:17 | Billing Data ---
Date of Service June 03, 2024 Coding Level of Care Code 04625 IN/OBS DISCH 30 MIN/LESS
--- NOTE | 2024-06-04 14:57 | Coding Query ---
CODING QUERY To promote full compliance with coding requirements relating to patient care, provider participation is requested in all cases of skiver counter uncertainty. Please assist us with the question(s) below: Coding Question(s): 18-year-old female who presents febrile, hypotensive, and tachycardic due to right lower lobe pneumonia. The medical record reflects the following clinical evidence: Clinical Indicators: +3/4 SIRS, Febrile 38.2, tachycardic 99, tachypneic 27, hypotensive 86/56 MAP 66, Risk Factor(s): Failure of outpatient treatment of pneumonia Treatment: IVF fluid boluses held and lieu of national IV bed shortage, Blood cultures x 2, IV Rocephin, IV doxycycline, continuous pulse oximetry, Physician's Response(s): __x_Sepsis due to pneumonia (possible) ___Other explanation of clinical findings ___Unable to determine (no explanation for clinical findings) Thank you Alyson DOUGHERTY
== END 2024-06-03 17:15 | disposition home or self-care (01) | DRG 871 ==
LOC: ED 15:29 → 2N 19:13 → SUATTDRO 19:13 → 2N 21:11